=== PATIENT | male | born 1985 | race Two or more races ===

== ENCOUNTER → 2020-04-17 | Outpatient (CLI) | payer OTHER ==
[~2020-04-17] MED LIST: ISOVUE-M 300 61% 15ML VIAL As Ordered ONE; LIDOCAINE 1% SDV 30ML VIAL As Ordered ONE; methylPREDNISolone SUSP 40MG/ML 1ML VIAL (DEPO MEDROL) As Ordered ONE
--- NOTE | 2020-04-17 13:17 | REP ---
INDICATION: LESI. COMPARISON: None. TECHNIQUE: Three views. 11.0 seconds of fluoroscopy time is reported. FINDINGS: A sequence of 3 last image hold fluoroscopically obtained spot radiograph(s) of the lumbar spine document(s) needle position(s) and contrast injection associated with injection procedure. IMPRESSION: Procedural imaging. <Electronically signed by Joel Land > 04/17/20 1889
--- NOTE | 2020-04-17 23:55 | ECWPNPC ---
PATIENT NAME: KYRIE REDMOND : 1985 GENDER: MALE VISIT DATE: 04/17/2020 DISCHARGE DATE: 04/17/20 1318 VISIT LOCKED DATE TIME: PHYSICIAN: ILA BURCH MD PHYSICIAN PAGER NO: ACTIVE RESOURCE: ILA BURCH MD REASON FOR APPOINTMENT 1. LUMBAR EPIDURAL STEROID INJECTION HISTORY OF PRESENT ILLNESS GENERAL: -. FALL RISK SCREENING: SCREENING :TWO OR MORE FALLS WITHOUT INJURY IN THE PAST YEAR STATES HE SLIPPED ON THE ICE A FEW TIMES THIS WINTER, NO INJURY PAIN SCREENING: PATIENT HAS A COMPLAINT OF ACUTE OR CHRONIC PAIN :YES LOCATION OF PAIN:LOW BACK, RIGHT HIP, LEG(S) RIGHT LEG INTENSITY OF PAIN (SCALE OF 1 TO 10):7 WHAT DOES YOUR PAIN FEEL LIKE:ACHING, STABBING DEEP ACHE DURATION:CONTINOUS, ALL DAY, AWAKENS FROM SLEEP PAIN IS INCREASED BY:PROLONGED STANDING, OTHERS LIFTING, SHOVELING PAIN IS DECREASED BY:SITTING, OTHERS HOT TUB NURSING NOTE: -. PAIN CENTER INTAKE QUESTIONS: DO YOU HAVE A HISTORY OF MRSA? :NO DO YOU TAKE A BLOOD THINNERS? :NO DO YOU HAVE ANY BLEEDING DISORDERS? :NO ANY NEW NUMBNESS OR WEAKNESS IN YOUR LEGS OR ARMS? :NO ANY PACEMAKER,DEFIBRILLATOR, OR DORSAL COLUMN STIMULATOR? :NO DO YOU HAVE ANY RASHES OR OPEN SORES? :NO ARE YOU ALLERGIC TO IV DYE? :NO ARE YOU DIABETIC? :NO ANY NEW PROBLEMS WITH YOUR MEDICATIONS? :NO HAVE YOU RECEIVED A VACCINE IN THE PAST 30 DAYS? :NO DO YOU PLAN TO RECEIVE A VACCINE IN THE NEXT 21 DAYS? :NO PATIENT SCHEDULED TO GET 1ST COVID VACCINE 05/11/20 OR 05/12/20. DO YOU TAKE ANY IMMUNOSUPPRESSIVE MEDICATIONS? :NO ANY HISTORY OF SEIZURES? :NO ANY HISTORY OF CARDIAC ISSUES OR EVENTS? :NO DO YOU HAVE SLEEP APNEA? :YES DO YOU WEAR A CPAP?YES ANY RECENT HEAD INJURY? :NO DO YOU HAVE ANY NEW INFECTIONS? :NO IS THERE A CHANCE YOU COULD BE ? :NO ARE YOU BREAST FEEDING? :NO WHEN DID YOU LAST EAT? : - WHEN DID YOU LAST DRINK? : - WHAT DID YOU LAST DRINK? : - NAME OF PERSON DRIVING YOU HOME? : DO YOU HAVE ANY OTHER QUESTIONS OR CONCERNS? : - CURRENT MEDICATIONS TAKING LIPITOR 20 MG TABLET 1 TABLET ORALLY ONCE A DAY TAKING CVS FLUTICASONE PROPIONATE 50 MCG/ACT SUSPENSION 1 SPRAY IN EACH NOSTRIL NASALLY ONCE A DAY TAKING LISINOPRIL 5 MG TABLET DIRECTED ORALLY DAILY TAKING ZITHROMAX 250 MG TABLET 1 TABLET ORALLY ONCE A DAY TAKING ALBUTEROL SULFATE HFA 108 (90 BASE) MCG/ACT AEROSOL SOLUTION 2 PUFFS INHALATION EVERY 4-6 HOURS NEEDED, NOTES: ONLY NEEDED TAKING LIDOCAINE 5 % PATCH 1 PATCH TO INTACT SKIN REMOVE AFTER 12 HOURS EXTERNALLY ONCE A DAY NEEDED 12 HRS ON AND 12 HRS OFF TAKING WRIST SPLINT RIGHT WRIST NEEDED TAKING ACCUTANE 20 MG DAILY ORAL DAILY TAKING TRIKAFTA 100-50-75 & 150 MG TABLET THERAPY PACK DIRECTED ORALLY DAILY TAKING MULTIVITAMIN ADULT - TABLET 1 TABLET ORALLY DAILY TAKING ZOLOFT 100 MG TABLET 1 TABLET ORALLY ONCE A DAY TAKING TIZANIDINE HCL 2 MG TABLET 1 TABLET NEEDED - TAKES 1/2 TABLET DAILY ORALLY FOR SPASMS THREE TIMES A DAY MDD3 TAKING VOLTAREN 1 % GEL DIRECTED TRANSDERMAL TAKING LYRICA 200 MG CAPSULE 1 CAPSULE ORALLY BID MDD2 NOT-TAKING MELOXICAM 15 MG TABLET 1 TABLET PRN ORALLY ONCE A DAY, NOTES: 08-19-19 0800 NOT-TAKING TRAMADOL HCL 50 MG TABLET 1-2 TAB ORALLY EVERY 6 HRS MDD4 NOT-TAKING MAY HAVE - - TURMERIC 2 CAPSULE ORALLY DAILY NOT-TAKING ALEVE 220 MG TABLET 1 TABLET WITH FOOD OR MILK NEEDED ORALLY EVERY 12 HRS NOT-TAKING KALYDECO 150 MG TABLET 1 TABLET ORALLY TWICE DAILY NOT-TAKING MULTI VITAMIN W/D-3 - TABLET 2 TABLETS ORALLY ONCE A DAY NOT-TAKING FLUOXETINE HCL 10 MG CAPSULE 1 CAPSULE IN THE MORNING ORALLY ONCE A DAY MEDICATION LIST REVIEWED AND RECONCILED WITH THE PATIENT PAST MEDICAL HISTORY CLASSIC MIGRAINE WITH AURA ATYPICAL DEPRESSIVE DISORDER/ANXIETY/ADJUSTMENT DISORDER ATTENTION DEFICIT DISORDER WITHOUT HYPERACTIVITY CERVICAL RADICULOPATHY/NEURITIS C5-6( SINCE 2007 ON DISABILITY) CHRONIC BACK PAIN CARPAL TUNNEL SYNDROME - LEFT HAND ALLERGIC RHINITIS 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 TO LINEZOLIDE AND CLINDAMYCIN ONLY 2016 PANCREATITIS RIGHT TORN LIGAMENT IN RIGHT OBESITY HYPERTENSION ALLERGIES AMITRIPTYLINE HCL: EXCESSIVE SOMNOLENCE - SIDE EFFECTS GABAPENTIN: GETS SUICIDAL THOUGHTS - SIDE EFFECTS SOCIAL HISTORY GENERAL: TOBACCO USE ARE YOU A:USES TOBACCO IN OTHER FORMS ALMOST QUIT, CONTUNES TO TRY, STARTED CHANTIX TODAY ADDITIONAL FINDINGS: TOBACCO USERCHEWS TOBACCO ALSO USING NON TOBACCO CHEW, REPORTS USING LESS SMOKING CESSATION INFORMATION GIVEN04/16/2020 VAPORNO E-CIGARETTENO LATEX QUESTIONNAIRE LATEX ALLERGY : HAVE YOU EVER DEVELOPED ANY TYPE OF REACTION AFTER HANDLING LATEX PRODUCTS SUCH RUBBER GLOVES, CONDOMS, DIAPHRAGMS, BALLOONS, SOCKS, OR UNDERWEAR?NO LATEX ALLERGY : HAVE YOU EVER DEVELOPED ANY TYPE OF REACTION DURING OR AFTER DENTAL APPOINTMENT, VAGINAL/RECTAL EXAMINATION, SURGICAL PROCEDURE, OR ANY OTHER EXPOSURE?NO LATEX RISK : HAVE YOU EVER HAD ANY DIFFICULTY BREATHING OR HIVES AFTER EATING OR HANDLING ANY FRUITS, OR VEGETABLES; SUCH KIWI, BANANAS, STONE FRUITS, OR CHESTNUTSNO LATEX RISK : DO YOU HAVE A PREVIOUS PERSONAL HISTORY OF MORE THAN NINE SURGERIES, SPINA BIFIDA, OR REPEATED CATHERIZATIONS? NO LATEX RISK : ARE YOU FREQUENTLY EXPOSED TO LATEX PRODUCTS IN YOUR OCCUPATION?NO DATE ASKED : 04/16/2020 ALCOHOL USE: NO. BMI CARE GOAL FOLLOW-UP ABOVE NORMAL BMI FOLLOW-UPEXERCISE PROMOTION: STRENGTH TRAINING ALCOHOL SCREENING DID YOU HAVE A DRINK CONTAINING ALCOHOL IN THE PAST YEAR?YES HOW OFTEN DID YOU HAVE SIX OR MORE DRINKS ON ONE OCCASION IN THE PAST YEAR?NEVER (0 POINTS) HOW MANY DRINKS DID YOU HAVE ON A TYPICAL DAY WHEN YOU WERE DRINKING IN THE PAST YEAR?3 OR 4 (1 POINT) HOW OFTEN DID YOU HAVE A DRINK CONTAINING ALCOHOL IN THE PAST YEAR?MONTHLY OR LESS (1 POINT) POINTS2 INTERPRETATIONNEGATIVE RECREATIONAL DRUG USE DRUG USE? NONE CAFFEINE CAFFEINE USE?NO SEXUAL HX HAD SEX IN THE LAST 12 MONTHS (VAGINAL, ORAL, OR ANAL)?: YES, WITH: WOMEN ONLY, HAVE YOU EVER HAD AN STD?: NO, HAD SEX IN THE LAST 12 MONTHS (VAGINAL, ORAL, OR ANAL)?: YES, WITH: WOMEN ONLY, HAVE YOU EVER HAD AN STD?: NO, HAD SEX IN THE LAST 12 MONTHS (VAGINAL, ORAL, OR ANAL)?: YES, WITH: WOMEN ONLY, HAVE YOU EVER HAD AN STD?: NO, HAD SEX IN THE LAST 12 MONTHS (VAGINAL, ORAL, OR ANAL)?: YES, WITH: WOMEN ONLY, HAVE YOU EVER HAD AN STD?: NO, HAD SEX IN THE LAST 12 MONTHS (VAGINAL, ORAL, OR ANAL)?: YES, WITH: WOMEN ONLY, HAVE YOU EVER HAD AN STD?: NO, HAD SEX IN THE LAST 12 MONTHS (VAGINAL, ORAL, OR ANAL)?: YES, WITH: WOMEN ONLY, HAVE YOU EVER HAD AN STD?: NO. HIV / HEP-C SCREENING HIV TEST OFFERED TO PATIENT:YES DATE OFFERED:07/27/2016 TEST ACCEPTED:NO HEP-C TEST OFFERED TO PATIENT:YES DATE OFFERED:07/27/2016 REASON:PATIENT DECLINED TEST ACCEPTED:NO REASON:PATIENT DECLINED MU-ISM [id number] LATTER DAY LANGUAGE LANGUAGES SPOKEN:CZECH EDUCATION BACHELOR- MATH, BACHELOR- MATH, BACHELOR- MATH, BACHELOR- MATH, BACHELOR- MATH, BACHELOR- MATH. 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 DIET: REGULAR , LOW FAT, LOW CHOLESTEROL, CARBOHYDRATE CONTROLLED, REGULAR , LOW FAT, LOW CHOLESTEROL, CARBOHYDRATE CONTROLLED. EXERCISE: NO REGULAR EXERCISE, WALKS, NO REGULAR EXERCISE, WALKS. MARITAL STATUS: , . OTHERS AT HOME: SPOUSE, , SPOUSE,. HOUSING: OWNS HOME, , OWNS HOME,. VITAL SIGNS WT 327.8 LBS, HT 70.5 IN, BMI 46.36 INDEX, BP 135/86 MM HG, HR 96 /MIN, RR 20 /MIN, TEMP 98.1 F, OXYGEN SAT % 96%, NA INITIALS SC 11:15. EXAMINATION GENERAL EXAMINATION: THE PATIENT IS ALERT, ORIENTED TIMES THREE AND COOPERATIVE. LUNGS ARE CLEAR TO AUSCULTATION. HEART SHOWS REGULAR RHYTHM, NO MURMURS AND NO GALLOPS. ASSESSMENTS INTERVERTEBRAL DISC DISORDERS WITH RADICULOPATHY, LUMBAR REGION - M51.16 (PRIMARY) TREATMENT INTERVERTEBRAL DISC DISORDERS WITH RADICULOPATHY, LUMBAR REGION [facility] FLUORO GUIDE SPINE INJECTION (PAIN)[id number] COMPLETION OF PROCEDURAL VISIT WHEN MEETS CRITERIATESS [place] 04/17/2020 1:23:27 PM > CRITERIA MET OTHERS NOTES: 04/16/20 1635 UNABLE TO REACH FOR PRE-PROCEDURE CALL. Serafin YADAV RN PAT COMPLETED 04/16/20 0387 Jae PIZARRO RN. PROCEDURES PAIN NURSING RECORD PROCEDURE IN ROOM 1215, PHYSICIAN IN ROOM 1251, START 1253, FINISH 1300, PHYSICIAN OUT OF ROOM 1301, OUT OF ROOM 1316, ECG NORMAL SINUS, PATIENT SHIELDED YES, SAFETY STRAP YES, PREP BETADINE BY TA, DRESSING TEGADERM BY DR BURCH LOC: IN ROOM 1215, PHYSICIAN IN ROOM 1251, START 1253, ECG NORMAL SINUS, PATIENT SHIELDED YES, SAFETY STRAP YES, PREP BETADINE BY TA RESP: 1. ALERT, ORIENTED TRE,[facility] 04/17/2020 12:32:59 PM > COLOR: 1. PINK TRE,[facility] 04/17/2020 12:33:13 PM > SKIN: 1. WARM, DRY TRE,[facility] 04/17/2020 12:33:21 PM > POSITION: 1. PRONE [facility] 04/17/2020 12:33:28 PM > VITALS: TRE,[facility] 04/17/2020 12:34:08 PM > HR82, 96%, 144/94, R16 TRE,[facility] 04/17/2020 12:43:06 PM > HR 83, 96%, 156/95, R16 TRE,[facility] 04/17/2020 12:59:00 PM > HR76, 95%, 161/103, R16 EXIT VITALS - HR 82, 126/78, 96%, R16 TRE,[facility] 04/17/2020 1:17 PM > COMPLETION OF PROCEDURE APPOINTMENT: POST PAIN 1, DRESSING SITE DRY AND INTACT LOW BACK, IV N/A, GAIT STEADY, TEACHING COMPLETED, PATIENT ACKNOWLEDGES UNDERSTANDING YES, PROCEDURE APPOINTMENT COMPLETED AT 1317 PRE PROCEDURE DIAGNOSIS LUMBAR DISC DISORDER WITH RADICULOPATHY POST PROCEDURE DIAGNOSIS LUMBAR DISC DISORDER WITH RADICULOPATHY PROCEDURE LUMBAR EPIDURAL STEROID INJECTION UNDER FLUOROSCOPIC GUIDANCE SURGEON DR. ILA BURCH LEATHER GOODS MAKER NONE ANESTHESIA LOCAL PRE PROCEDURE NOTE THE PATIENT HAS A HISTORY OF CHRONIC LOW BACK PAIN. I EVALUATED THE PATIENT AND REVIEWED THE CHART. I WENT OVER THE RISKS, ALTERNATIVES, AND BENEFITS ASSOCIATED WITH THIS PROCEDURE. THE PATIENT WOULD LIKE TO PROCEED AND GIVE CONSENT TO PERFORMED THE PROCEDURE. THE PATIENT DENIES UNEXPLAINABLE WEIGHT LOSS, FEVER, CHILLS, OR NEW CHANGES IN URINARY OR BOWEL CONTROL. PATIENT IS COVID-19 NEGATIVE. DESCRIPTION OF PROCEDURE THE PATIENT WAS BROUGHT TO THE PROCEDURE ROOM AND PLACED IN THE PRONE POSITION. THE LUMBOSACRAL AREA WAS CLEANED WITH BETADINE SOLUTION AND DRAPED ASEPTICALLY. THE PROCEDURE WAS DONE UNDER STERILE CONDITIONS. A TIMEOUT WAS PERFORMED WHERE THE CONSENTED SITE WAS VERIFIED WITH EVERYONE IN THE ROOM. UNDER FLUOROSCOPIC GUIDANCE, THE TARGET POINT WAS SELECTED AT THE INTERLAMINAR LEVEL OF L4-L5. I CONFIRMED AGAIN THE SITE OF TARGET. LIDOCAINE WAS USED TO NUMB THE SKIN AND THE SUBCUTANEOUS TISSUE BELOW IT. EPIDURAL TUOHY NEEDLE, 17-GAUGE, WAS ADVANCED UNDER FLUOROSCOPIC GUIDANCE AND FOLLOWING PATIENT FEEDBACK UNTIL THE EPIDURAL SPACE WAS REACHED 9 CM DEEP INTO THE SKIN BY THE LOSS OF RESISTANCE TECHNIQUE. ISOVUE-M DYE 30%, 0.25 ML, WAS INJECTED SHOWING ADEQUATE SPREAD OF THE DYE. THEN, A SOLUTION OF 3 ML OF NORMAL SALINE WITH DEPO-MEDROL 40 MG WAS INJECTED SLOWLY FOLLOWING PATIENT FEEDBACK. THE MEDICATIONS WERE VERIFIED WITH THE NURSE. THERE WAS NO EVIDENCE OF BLOOD, PARESTHESIA OR CEREBROSPINAL FLUID DURING THE PROCEDURE. THE PATIENT WAS SENT TO THE RECOVERY ROOM. THE PATIENT WAS MOVING THE EXTREMITIES AND DOING WELL. THERE WERE NO COMPLICATIONS DURING THE PROCEDURE. ESTIMATED BLOOD LOSS WAS LESS THAN 5 ML. FLUOROSCOPY TIME WAS 10 SECONDS POST PROCEDURE NOTE THE PATIENT WILL BE SEEN IN A FOLLOW UP IN THE NEXT FEW WEEKS. I AM LOOKING FOR LONG LASTING RELIEF FOR THE PATIENT WITH THIS INTERVENTION. INSTRUCTIONS WERE GIVEN, QUESTIONS WERE ANSWERED, AND THE PATIENT EXPRESSED UNDERSTANDING AND AGREES WITH THE PLAN. I, THEODORA PATHAK, DOCUMENTED THE ABOVE INFORMATION ACTING A SCRIBE FOR DR. BURCH. I HAVE REVIEWED THE ABOVE DOCUMENT, WRITTEN BY THEODORA PATHAK, LIFESTYLE CONSULTANT, AND I VERIFY THAT IT IS ACCURATE PROCEDURE CODES 28472 LUMBAR/SACRAL W/ IMAGING DISPOSITION & COMMUNICATION FOLLOW UP FOLLOW UP WITH CHARGE COORDINATOR (REASON: POST LUMBAR EPIDURAL STEROID INJECTION) ELECTRONICALLY SIGNED BY ILA BURCH MD, MD ON 04/17/2020 AT 04:41 PM EST DISCLAIMER : THIS IS A VISIT SUMMARY EXTRACTED FROM THE [employer] CHART. IT IS NOT A COPY OF THE [employer] PROGRESS NOTE. JADEN
== END ==
LOC: M PAIN 11:20
PROVIDERS: ATTEND Anesthesiology
DX: M51.16 Intervertebral disc disorders with radiculopathy, lumbar region (principal); G43.109 Migraine with aura, not intractable, without status migrainosus; F32.9 Major depressive disorder, single episode, unspecified; F41.9 Anxiety disorder, unspecified; I10 Essential (primary) hypertension; E66.9 Obesity, unspecified; F17.220 Nicotine dependence, chewing tobacco, uncomplicated; Z68.42 Body mass index [BMI] 45.0-49.9, adult; Z88.8 Allergy status to other drugs, medicaments and biological substances; Z79.899 Other long term (current) drug therapy
CPT/HCPCS: 62323; J1030; Q9967

== ENCOUNTER → 2020-05-01 | Outpatient (CLI) | payer OTHER ==
--- NOTE | 2020-05-08 02:47 | ECWPNPC ---
PATIENT NAME: KYRIE REDMOND : 1985 GENDER: MALE VISIT DATE: 05/01/2020 DISCHARGE DATE: 05/01/20 1221 VISIT LOCKED DATE TIME: PHYSICIAN: CHARLES MEDINA PHYSICIAN PAGER NO: ACTIVE RESOURCE: CHARLES MEDINA REASON FOR APPOINTMENT 1. POST LUMBAR EPIDURAL STEROID INJECTION L4-5, L5-S1 HISTORY OF PRESENT ILLNESS GENERAL: HERE FOR POST PROCEDURE FOLLOW-UP. HAD LESI 2 WEEKS AGO. REPORTING MARKED REDUCTION IN PAIN ACROSS HIS LOWER BACK. REPORTING IMPROVED ACTIVITY TOLERANCE SINCE PROCEDURE. FINDS CURRENT PAIN MEDICATION HELPFUL AT REDUCING PAIN AND KEEPING HIM FUNCTIONAL. DENIES ADVERSE SIDE EFFECTS WITH MEDICATION. -. FALL RISK SCREENING: SCREENING : NO FALLS REPORTED IN THE LAST YEAR. PAIN SCREENING: PATIENT HAS A COMPLAINT OF ACUTE OR CHRONIC PAIN :YES LOCATION OF PAIN:LOW BACK INTENSITY OF PAIN (SCALE OF 1 TO 10):0 WHAT DOES YOUR PAIN FEEL LIKE:CONTINOUS, SHARP, STABBING DURATION:CONTINOUS, CONSTANT, ALL DAY PAIN IS INCREASED BY:ACTIVITIES, PROLONGED STANDING PAIN IS DECREASED BY:OTHERS HEAT AND DRIVING HEATED SEATS NURSING NOTE: -. PAIN CENTER INTAKE QUESTIONS: DO YOU HAVE A HISTORY OF MRSA? :NO DO YOU TAKE A BLOOD THINNERS? :NO DO YOU HAVE ANY BLEEDING DISORDERS? :NO ANY NEW NUMBNESS OR WEAKNESS IN YOUR LEGS OR ARMS? :NO ANY PACEMAKER,DEFIBRILLATOR, OR DORSAL COLUMN STIMULATOR? :NO DO YOU HAVE ANY RASHES OR OPEN SORES? :NO ARE YOU ALLERGIC TO IV DYE? :NO ARE YOU DIABETIC? :NO ANY NEW PROBLEMS WITH YOUR MEDICATIONS? :NO HAVE YOU RECEIVED A VACCINE IN THE PAST 30 DAYS? :YES IF SO WHAT VACCINE AND WHEN? 1ST COVID 04/30/2020 DO YOU PLAN TO RECEIVE A VACCINE IN THE NEXT 21 DAYS? :YES IF SO WHAT VACCINE AND WHEN? 2ND COVID 05/21/2020 DO YOU NEED ANY PRESCRIPTION? :NO DO YOU TAKE ANY IMMUNOSUPPRESSIVE MEDICATIONS? :NO IS THERE A CHANCE YOU COULD BE ? :NO ARE YOU BREAST FEEDING? :NO CURRENT MEDICATIONS TAKING LIPITOR 20 MG TABLET 1 TABLET ORALLY ONCE A DAY TAKING [facility] FLUTICASONE PROPIONATE 50 MCG/ACT SUSPENSION 1 SPRAY IN EACH NOSTRIL NASALLY ONCE A DAY TAKING LISINOPRIL 5 MG TABLET DIRECTED ORALLY DAILY TAKING ZITHROMAX 250 MG TABLET 1 TABLET ORALLY ONCE A DAY TAKING ALBUTEROL SULFATE HFA 108 (90 BASE) MCG/ACT AEROSOL SOLUTION 2 PUFFS INHALATION EVERY 4-6 HOURS NEEDED TAKING LIDOCAINE 5 % PATCH 1 PATCH TO INTACT SKIN REMOVE AFTER 12 HOURS EXTERNALLY ONCE A DAY NEEDED 12 HRS ON AND 12 HRS OFF TAKING WRIST SPLINT RIGHT WRIST NEEDED TAKING ACCUTANE 20 MG DAILY ORAL DAILY TAKING TRIKAFTA 100-50-75 & 150 MG TABLET THERAPY PACK DIRECTED ORALLY DAILY TAKING MULTIVITAMIN ADULT - TABLET 1 TABLET ORALLY DAILY TAKING ZOLOFT 100 MG TABLET 1 TABLET ORALLY ONCE A DAY TAKING TIZANIDINE HCL 2 MG TABLET 1 TABLET NEEDED - TAKES 1/2 TABLET DAILY ORALLY FOR SPASMS THREE TIMES A DAY MDD3 TAKING VOLTAREN 1 % GEL DIRECTED TRANSDERMAL TAKING LYRICA 200 MG CAPSULE 1 CAPSULE ORALLY BID MDD2 NOT-TAKING MELOXICAM 15 MG TABLET 1 TABLET PRN ORALLY ONCE A DAY, NOTES: 08-19-19 0800 NOT-TAKING TRAMADOL HCL 50 MG TABLET 1-2 TAB ORALLY EVERY 6 HRS MDD4 NOT-TAKING MAY HAVE - - TURMERIC 2 CAPSULE ORALLY DAILY NOT-TAKING ALEVE 220 MG TABLET 1 TABLET WITH FOOD OR MILK NEEDED ORALLY EVERY 12 HRS NOT-TAKING KALYDECO 150 MG TABLET 1 TABLET ORALLY TWICE DAILY NOT-TAKING MULTI VITAMIN W/D-3 - TABLET 2 TABLETS ORALLY ONCE A DAY NOT-TAKING FLUOXETINE HCL 10 MG CAPSULE 1 CAPSULE IN THE MORNING ORALLY ONCE A DAY MEDICATION LIST REVIEWED AND RECONCILED WITH THE PATIENT PAST MEDICAL HISTORY CLASSIC MIGRAINE WITH AURA ATYPICAL DEPRESSIVE DISORDER/ANXIETY/ADJUSTMENT DISORDER ATTENTION DEFICIT DISORDER WITHOUT HYPERACTIVITY CERVICAL RADICULOPATHY/NEURITIS C5-6( SINCE 2007 ON DISABILITY) CHRONIC BACK PAIN CARPAL TUNNEL SYNDROME - LEFT HAND ALLERGIC RHINITIS 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-[id number] TREMOR ERECTILE DYSFUNCTION HISTORY OF FOLLICULITIS STAPH EPIDERMITIS SENS. TO LINEZOLIDE AND CLINDAMYCIN ONLY 2017 PANCREATITIS RIGHT TORN LIGAMENT IN RIGHT OBESITY HYPERTENSION ALLERGIES AMITRIPTYLINE HCL: EXCESSIVE SOMNOLENCE - SIDE EFFECTS GABAPENTIN: GETS SUICIDAL THOUGHTS - SIDE EFFECTS SOCIAL HISTORY GENERAL: TOBACCO USE ARE YOU A:USES TOBACCO IN OTHER FORMS ALMOST QUIT, CONTUNES TO TRY, STARTED CHANTIX TODAY ADDITIONAL FINDINGS: TOBACCO USERCHEWS TOBACCO ALSO USING NON TOBACCO CHEW, REPORTS USING LESS SMOKING CESSATION INFORMATION GIVEN04/16/2020 VAPORNO E-CIGARETTENO LATEX QUESTIONNAIRE LATEX ALLERGY : HAVE YOU EVER DEVELOPED ANY TYPE OF REACTION AFTER HANDLING LATEX PRODUCTS SUCH RUBBER GLOVES, CONDOMS, DIAPHRAGMS, BALLOONS, SOCKS, OR UNDERWEAR?NO LATEX ALLERGY : HAVE YOU EVER DEVELOPED ANY TYPE OF REACTION DURING OR AFTER DENTAL APPOINTMENT, VAGINAL/RECTAL EXAMINATION, SURGICAL PROCEDURE, OR ANY OTHER EXPOSURE?NO LATEX RISK : HAVE YOU EVER HAD ANY DIFFICULTY BREATHING OR HIVES AFTER EATING OR HANDLING ANY FRUITS, OR VEGETABLES; SUCH KIWI, BANANAS, STONE FRUITS, OR CHESTNUTSNO LATEX RISK : DO YOU HAVE A PREVIOUS PERSONAL HISTORY OF MORE THAN NINE SURGERIES, SPINA BIFIDA, OR REPEATED CATHERIZATIONS? NO LATEX RISK : ARE YOU FREQUENTLY EXPOSED TO LATEX PRODUCTS IN YOUR OCCUPATION?NO DATE ASKED : 05/01/2020 ALCOHOL USE: NO. BMI CARE GOAL FOLLOW-UP ABOVE NORMAL BMI FOLLOW-UPEXERCISE PROMOTION: STRENGTH TRAINING ALCOHOL SCREENING DID YOU HAVE A DRINK CONTAINING ALCOHOL IN THE PAST YEAR?YES HOW OFTEN DID YOU HAVE SIX OR MORE DRINKS ON ONE OCCASION IN THE PAST YEAR?NEVER (0 POINTS) HOW MANY DRINKS DID YOU HAVE ON A TYPICAL DAY WHEN YOU WERE DRINKING IN THE PAST YEAR?3 OR 4 (1 POINT) HOW OFTEN DID YOU HAVE A DRINK CONTAINING ALCOHOL IN THE PAST YEAR?MONTHLY OR LESS (1 POINT) POINTS2 INTERPRETATIONNEGATIVE RECREATIONAL DRUG USE DRUG USE? NONE CAFFEINE CAFFEINE USE?NO SEXUAL HX HAD SEX IN THE LAST 12 MONTHS (VAGINAL, ORAL, OR ANAL)?: YES, WITH: WOMEN ONLY, HAVE YOU EVER HAD AN STD?: NO, HAD SEX IN THE LAST 12 MONTHS (VAGINAL, ORAL, OR ANAL)?: YES, WITH: WOMEN ONLY, HAVE YOU EVER HAD AN STD?: NO, HAD SEX IN THE LAST 12 MONTHS (VAGINAL, ORAL, OR ANAL)?: YES, WITH: WOMEN ONLY, HAVE YOU EVER HAD AN STD?: NO, HAD SEX IN THE LAST 12 MONTHS (VAGINAL, ORAL, OR ANAL)?: YES, WITH: WOMEN ONLY, HAVE YOU EVER HAD AN STD?: NO, HAD SEX IN THE LAST 12 MONTHS (VAGINAL, ORAL, OR ANAL)?: YES, WITH: WOMEN ONLY, HAVE YOU EVER HAD AN STD?: NO, HAD SEX IN THE LAST 12 MONTHS (VAGINAL, ORAL, OR ANAL)?: YES, WITH: WOMEN ONLY, HAVE YOU EVER HAD AN STD?: NO. HIV / HEP-C SCREENING HIV TEST OFFERED TO PATIENT:YES DATE OFFERED:07/27/2016 TEST ACCEPTED:NO HEP-C TEST OFFERED TO PATIENT:YES DATE OFFERED:07/27/2016 REASON:PATIENT DECLINED TEST ACCEPTED:NO REASON:PATIENT DECLINED TAOISM [id number] VOODOO LANGUAGE LANGUAGES SPOKEN:[employer] EDUCATION BACHELOR- MATH, BACHELOR- MATH, BACHELOR- MATH, BACHELOR- MATH, BACHELOR- MATH, BACHELOR- MATH. 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 DIET: REGULAR , LOW FAT, LOW CHOLESTEROL, CARBOHYDRATE CONTROLLED, REGULAR , LOW FAT, LOW CHOLESTEROL, CARBOHYDRATE CONTROLLED. EXERCISE: NO REGULAR EXERCISE, WALKS, NO REGULAR EXERCISE, WALKS. MARITAL STATUS: , . OTHERS AT HOME: SPOUSE, , SPOUSE,. HOUSING: OWNS HOME, , OWNS HOME,. REVIEW OF SYSTEMS CONSTITUTIONAL: ANY RECENT FEVER NO . CHILLS NO . WEIGHT CHANGE OF UNKNOWN REASONS NO . GASTROENTEROLOGY: NEW UNEXPLAINABLE CHANGES IN BOWEL CONTROL NO . CONSTIPATION NO . GENITOURINARY: ANY NEW CHANGE IN BLADDER CONTROL? NO . NEUROLOGY: NEW ONSET DIZZINESS OR NEUROLOGICAL CHANGES NOT MENTIONED NO . NEW NUMBNESS OR PAIN PATTERNS NOT MENTIONED AND PERTINENT TO TODAY'S VISIT NO . CARDIOLOGY: NEW CHEST PRESSURE NO . PATIENT DENIES NO . RESPIRATORY: UNEXPLAINABLE COUGH NO . NEW SHORTNESS OF BREATH NO . VITAL SIGNS WT 336.0 LBS, HT 70.5 IN, BMI 47.52 INDEX, BP 142/74 MM HG, HR 96 /MIN, RR 18 /MIN, TEMP 97.0 F, OXYGEN SAT % 97%, NA INITIALS AW 1142. EXAMINATION GENERAL EXAMINATION: GENERALAWAKE,ALERT ,PLEASANT . PSYCHAFFECT NORMAL . LUNGS:LUNG MICHEL ARE CLEAR TO AUSCULTATION BILATERALLY. GOOD MOVEMENT OF AIR . HEART:S1, S2 IN A REGULAR RATE AND RHYTHM. NO SIGNIFICANT MURMURS, RUBS OR GALLOPS NOTED . ASSESSMENTS OTHER CHRONIC PAIN - G89.29 (PRIMARY) INTERVERTEBRAL DISC DISORDERS WITH RADICULOPATHY, LUMBAR REGION - M51.16 TREATMENT OTHER CHRONIC PAIN PAIN PROCEDURE LOGDATE OF PROCEDURE1PROCEDURE:LUMBAR EPIDURAL STEROID INJECTIONAMOUNT OF PRE SEDATE0/0RESULT:MARKED REDUCTION IN LOW BACK PAIN AND IMPROVED ACTIVITY TOLERANCE PROCEDURE CODES [id number] ESTABILISHED PATIENT [facility] CHARGE DISPOSITION & COMMUNICATION FOLLOW UP 3 MONTHS (REASON: LOW BACK PAIN/DOES WELL WITH LESI) ELECTRONICALLY SIGNED BY ELADIA PA ON 05/07/2020 AT 01:18 PM EDT DISCLAIMER : THIS IS A VISIT SUMMARY EXTRACTED FROM THE [employer] CHART. IT IS NOT A COPY OF THE [employer] PROGRESS NOTE. JADEN
== END ==
LOC: M PAIN 11:30
PROVIDERS: ATTEND Nurse Practitioner Family
DX: G89.29 Other chronic pain (principal); M51.16 Intervertebral disc disorders with radiculopathy, lumbar region; I10 Essential (primary) hypertension; E66.9 Obesity, unspecified; G43.109 Migraine with aura, not intractable, without status migrainosus; F32.9 Major depressive disorder, single episode, unspecified; F41.9 Anxiety disorder, unspecified; N52.9 Male erectile dysfunction, unspecified; F17.220 Nicotine dependence, chewing tobacco, uncomplicated; Z79.899 Other long term (current) drug therapy; Z88.8 Allergy status to other drugs, medicaments and biological substances; Z68.42 Body mass index [BMI] 45.0-49.9, adult

== ENCOUNTER → 2020-08-01 | Outpatient (CLI) | payer OTHER ==
--- NOTE | 2020-08-07 05:06 | ECWPNPC ---
PATIENT NAME: KYRIE REDMOND : 1985 GENDER: MALE VISIT DATE: 08/01/2020 DISCHARGE DATE: 08/01/20 1150 VISIT LOCKED DATE TIME: PHYSICIAN: CHARLES MEDINA PHYSICIAN PAGER NO: ACTIVE RESOURCE: CHARLES MEDINA REASON FOR APPOINTMENT 1. LOW BACK PAIN/DOES WELL WITH LESI HISTORY OF PRESENT ILLNESS GENERAL: HERE FOR FOLLOW-UP OF CHRONIC LOW BACK PAIN. LOW BACK PAIN HAS BEGUN TO BE PROBLEMATIC OVER THE PAST FEW WEEKS. PAIN RADIATES INTO BILATERAL LEGS LEFT GREATER THAN RIGHT. HAD GREATER THAN 80% REDUCTION IN PAIN AND LOWER EXTREMITY RADICULAR SYMPTOMS AFTER LUMBAR EPIDURAL STEROID INJECTION THAT WAS DONE IN MARCH. DISCUSSED TREATMENT PLAN. -. FALL RISK SCREENING: SCREENING : NO FALLS REPORTED IN THE LAST YEAR. PAIN SCREENING: PATIENT HAS A COMPLAINT OF ACUTE OR CHRONIC PAIN :YES LOCATION OF PAIN:LOW BACK, LEFT HIP, RIGHT HIP INTENSITY OF PAIN (SCALE OF 1 TO 10):3 AVERAGE IS A 7 WHAT DOES YOUR PAIN FEEL LIKE:ACHING, BURNING, CONTINOUS, OTHER PINCHING DURATION:CONTINOUS, AWAKENS FROM SLEEP PAIN IS INCREASED BY:ACTIVITIES, PROLONGED STANDING PAIN IS DECREASED BY:USE OF PAIN MEDICATIONS, SITTING CROUCHING, HEAT NURSING NOTE: -. PAIN CENTER INTAKE QUESTIONS: DO YOU HAVE A HISTORY OF MRSA? :NO DO YOU TAKE A BLOOD THINNERS? :NO DO YOU HAVE ANY BLEEDING DISORDERS? :NO ANY NEW NUMBNESS OR WEAKNESS IN YOUR LEGS OR ARMS? :YES NUMBNESS IN LEGS ANY PACEMAKER,DEFIBRILLATOR, OR DORSAL COLUMN STIMULATOR? :NO DO YOU HAVE ANY RASHES OR OPEN SORES? :NO ARE YOU ALLERGIC TO IV DYE? :NO ARE YOU DIABETIC? :NO ANY NEW PROBLEMS WITH YOUR MEDICATIONS? :NO HAVE YOU RECEIVED A VACCINE IN THE PAST 30 DAYS? :NO SECOND COVID VACCINATION 05/21/20 DO YOU PLAN TO RECEIVE A VACCINE IN THE NEXT 21 DAYS? :NO DO YOU NEED ANY PRESCRIPTION? :YES LYRICA DO YOU TAKE ANY IMMUNOSUPPRESSIVE MEDICATIONS? :NO IS THERE A CHANCE YOU COULD BE ? :NO ARE YOU BREAST FEEDING? :NO CURRENT MEDICATIONS TAKING LIPITOR 20 MG TABLET 1 TABLET ORALLY ONCE A DAY TAKING CVS FLUTICASONE PROPIONATE 50 MCG/ACT SUSPENSION 1 SPRAY IN EACH NOSTRIL NASALLY ONCE A DAY TAKING LISINOPRIL 5 MG TABLET DIRECTED ORALLY DAILY TAKING ZITHROMAX 250 MG TABLET 1 TABLET ORALLY ONCE A DAY TAKING ALBUTEROL SULFATE HFA 108 (90 BASE) MCG/ACT AEROSOL SOLUTION 2 PUFFS INHALATION EVERY 4-6 HOURS NEEDED TAKING LIDOCAINE 5 % PATCH 1 PATCH TO INTACT SKIN REMOVE AFTER 12 HOURS EXTERNALLY ONCE A DAY NEEDED 12 HRS ON AND 12 HRS OFF TAKING WRIST SPLINT RIGHT WRIST NEEDED TAKING ACCUTANE 20 MG DAILY ORAL DAILY TAKING TRIKAFTA 100-50-75 & 150 MG TABLET THERAPY PACK DIRECTED ORALLY DAILY TAKING MULTIVITAMIN ADULT - TABLET 1 TABLET ORALLY DAILY TAKING ZOLOFT 100 MG TABLET 1 TABLET ORALLY ONCE A DAY TAKING VOLTAREN 1 % GEL DIRECTED TRANSDERMAL TAKING LYRICA 200 MG CAPSULE 1 CAPSULE ORALLY BID MDD2 TAKING TIZANIDINE HCL 2 MG TABLET 1 TABLET NEEDED - TAKES 1/2 TABLET DAILY ORALLY FOR SPASMS TID PRN TAKING BUPROPION HCL ER (SMOKING DET) 150 MG TABLET EXTENDED RELEASE 12 HOUR 1 TABLET IN THE MORNING ORALLY ONCE A DAY NOT-TAKING MELOXICAM 15 MG TABLET 1 TABLET PRN ORALLY ONCE A DAY, NOTES: 08-19-19 0800 NOT-TAKING TRAMADOL HCL 50 MG TABLET 1-2 TAB ORALLY EVERY 6 HRS MDD4 NOT-TAKING MAY HAVE - - TURMERIC 2 CAPSULE ORALLY DAILY NOT-TAKING ALEVE 220 MG TABLET 1 TABLET WITH FOOD OR MILK NEEDED ORALLY EVERY 12 HRS NOT-TAKING KALYDECO 150 MG TABLET 1 TABLET ORALLY TWICE DAILY NOT-TAKING MULTI VITAMIN W/D-3 - TABLET 2 TABLETS ORALLY ONCE A DAY NOT-TAKING FLUOXETINE HCL 10 MG CAPSULE 1 CAPSULE IN THE MORNING ORALLY ONCE A DAY MEDICATION LIST REVIEWED AND RECONCILED WITH THE PATIENT PAST MEDICAL HISTORY CLASSIC MIGRAINE WITH AURA ATYPICAL DEPRESSIVE DISORDER/ANXIETY/ADJUSTMENT DISORDER ATTENTION DEFICIT DISORDER WITHOUT HYPERACTIVITY CERVICAL RADICULOPATHY/NEURITIS C5-6( SINCE 2007 ON DISABILITY) CHRONIC BACK PAIN CARPAL TUNNEL SYNDROME - LEFT HAND ALLERGIC RHINITIS 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 TO LINEZOLIDE AND CLINDAMYCIN ONLY 2017 PANCREATITIS RIGHT TORN LIGAMENT IN RIGHT OBESITY HYPERTENSION ALLERGIES AMITRIPTYLINE HCL: EXCESSIVE SOMNOLENCE - SIDE EFFECTS GABAPENTIN: GETS SUICIDAL THOUGHTS - SIDE EFFECTS SOCIAL HISTORY GENERAL: TOBACCO USE ARE YOU A:FORMER SMOKER SMOKING CESSATION INFORMATION GIVEN08/01/2020 VAPORNO E-CIGARETTENO LATEX QUESTIONNAIRE LATEX ALLERGY : HAVE YOU EVER DEVELOPED ANY TYPE OF REACTION AFTER HANDLING LATEX PRODUCTS SUCH RUBBER GLOVES, CONDOMS, DIAPHRAGMS, BALLOONS, SOCKS, OR UNDERWEAR?NO LATEX ALLERGY : HAVE YOU EVER DEVELOPED ANY TYPE OF REACTION DURING OR AFTER DENTAL APPOINTMENT, VAGINAL/RECTAL EXAMINATION, SURGICAL PROCEDURE, OR ANY OTHER EXPOSURE?NO LATEX RISK : HAVE YOU EVER HAD ANY DIFFICULTY BREATHING OR HIVES AFTER EATING OR HANDLING ANY FRUITS, OR VEGETABLES; SUCH KIWI, BANANAS, STONE FRUITS, OR CHESTNUTSNO LATEX RISK : DO YOU HAVE A PREVIOUS PERSONAL HISTORY OF MORE THAN NINE SURGERIES, SPINA BIFIDA, OR REPEATED CATHERIZATIONS? NO LATEX RISK : ARE YOU FREQUENTLY EXPOSED TO LATEX PRODUCTS IN YOUR OCCUPATION?NO DATE ASKED : 08/01/2020 ALCOHOL USE: NO. BMI CARE GOAL FOLLOW-UP ABOVE NORMAL BMI FOLLOW-UPEXERCISE PROMOTION: STRENGTH TRAINING ALCOHOL SCREENING DID YOU HAVE A DRINK CONTAINING ALCOHOL IN THE PAST YEAR?YES HOW OFTEN DID YOU HAVE SIX OR MORE DRINKS ON ONE OCCASION IN THE PAST YEAR?NEVER (0 POINTS) HOW MANY DRINKS DID YOU HAVE ON A TYPICAL DAY WHEN YOU WERE DRINKING IN THE PAST YEAR?3 OR 4 (1 POINT) HOW OFTEN DID YOU HAVE A DRINK CONTAINING ALCOHOL IN THE PAST YEAR?MONTHLY OR LESS (1 POINT) POINTS2 INTERPRETATIONNEGATIVE RECREATIONAL DRUG USE DRUG USE? NONE CAFFEINE CAFFEINE USE?NO SEXUAL HX HAD SEX IN THE LAST 12 MONTHS (VAGINAL, ORAL, OR ANAL)?: YES, WITH: WOMEN ONLY, HAVE YOU EVER HAD AN STD?: NO, HAD SEX IN THE LAST 12 MONTHS (VAGINAL, ORAL, OR ANAL)?: YES, WITH: WOMEN ONLY, HAVE YOU EVER HAD AN STD?: NO, HAD SEX IN THE LAST 12 MONTHS (VAGINAL, ORAL, OR ANAL)?: YES, WITH: WOMEN ONLY, HAVE YOU EVER HAD AN STD?: NO, HAD SEX IN THE LAST 12 MONTHS (VAGINAL, ORAL, OR ANAL)?: YES, WITH: WOMEN ONLY, HAVE YOU EVER HAD AN STD?: NO, HAD SEX IN THE LAST 12 MONTHS (VAGINAL, ORAL, OR ANAL)?: YES, WITH: WOMEN ONLY, HAVE YOU EVER HAD AN STD?: NO, HAD SEX IN THE LAST 12 MONTHS (VAGINAL, ORAL, OR ANAL)?: YES, WITH: WOMEN ONLY, HAVE YOU EVER HAD AN STD?: NO. HIV / HEP-C SCREENING HIV TEST OFFERED TO PATIENT:YES DATE OFFERED:07/27/2016 TEST ACCEPTED:NO HEP-C TEST OFFERED TO PATIENT:YES DATE OFFERED:07/27/2016 REASON:PATIENT DECLINED TEST ACCEPTED:NO REASON:PATIENT DECLINED [facility] [id number] LANGUAGES SPOKEN:[employer] [employer]UC[employer] BACHELOR- MATH, BACHELOR- MATH, BACHELOR- MATH, BACHELOR- MATH, BACHELOR- MATH, BACHELOR- MATH. 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 DIET: REGULAR , LOW FAT, LOW CHOLESTEROL, CARBOHYDRATE CONTROLLED, REGULAR , LOW FAT, LOW CHOLESTEROL, CARBOHYDRATE CONTROLLED. EXERCISE: NO REGULAR EXERCISE, WALKS, NO REGULAR EXERCISE, WALKS. MARITAL STATUS: , . OTHERS AT HOME: SPOUSE, , SPOUSE,. HOUSING: OWNS HOME, , OWNS HOME,. REVIEW OF SYSTEMS CONSTITUTIONAL: ANY RECENT FEVER NO . CHILLS NO . WEIGHT CHANGE OF UNKNOWN REASONS NO . GASTROENTEROLOGY: NEW UNEXPLAINABLE CHANGES IN BOWEL CONTROL NO . CONSTIPATION NO . GENITOURINARY: ANY NEW CHANGE IN BLADDER CONTROL? NO . NEUROLOGY: NEW ONSET DIZZINESS OR NEUROLOGICAL CHANGES NOT MENTIONED NO . NEW NUMBNESS OR PAIN PATTERNS NOT MENTIONED AND PERTINENT TO TODAY'S VISIT NO . CARDIOLOGY: NEW CHEST PRESSURE NO . PATIENT DENIES NO . RESPIRATORY: UNEXPLAINABLE COUGH NO . NEW SHORTNESS OF BREATH NO . VITAL SIGNS WT 245.2 LBS, HT 70.5 IN, BMI 34.68 INDEX, BP 122/76 MM HG, HR 74 /MIN, RR 18 /MIN, TEMP 97.0 F, OXYGEN SAT % 98%, SAFE IN ENV? (Y/N) YES, NA INITIALS AW 1119, REVIEWED BY: TELLO PATIÑO MA. EXAMINATION GENERAL EXAMINATION: GENERAL AWAKE,ALERT ,PLEASANT . PSYCH AFFECT NORMAL . LUNGS: LUNG MICHEL ARE CLEAR TO AUSCULTATION BILATERALLY. GOOD MOVEMENT OF AIR . HEART: S1, S2 IN A REGULAR RATE AND RHYTHM. NO SIGNIFICANT MURMURS, RUBS OR GALLOPS NOTED . LUMBAR: PALPATION: + FOR PAIN OVER L/S SPINE. + FOR PAIN OVER L/S PARASPINALS SLE: POSITIVE OVER LEFT LEG AT 45 DEGREES. DIAGNOSTIC TESTS REVIEWED MRI L/S SPINE. ASSESSMENTS INTERVERTEBRAL DISC DISORDER WITH RADICULOPATHY OF LUMBAR REGION - M51.16 (PRIMARY) TREATMENT INTERVERTEBRAL DISC DISORDER WITH RADICULOPATHY OF LUMBAR REGION NOTES: LUMBAR EPIDURAL STERIOD INJECTION REVIEWED PRE PROCEDURE INFORMATION, PATIENT VERBALIZED UNDERSTANDING THELMA JOLLEY. PROCEDURE CODES FA211 ESTABILISHED PATIENT [facility] FACILITY CHARGE DISPOSITION & COMMUNICATION FOLLOW UP POST (REASON: LUMBAR EPIDURAL STERIOD INJECTION) ELECTRONICALLY SIGNED BY ELADIA PA ON 08/06/2020 AT 09:44 AM EDT DISCLAIMER : THIS IS A VISIT SUMMARY EXTRACTED FROM THE [employer] CHART. IT IS NOT A COPY OF THE [employer] PROGRESS NOTE. JADEN
== END ==
LOC: M PAIN 11:30
PROVIDERS: ATTEND Nurse Practitioner Family
DX: M51.16 Intervertebral disc disorders with radiculopathy, lumbar region (principal); G43.109 Migraine with aura, not intractable, without status migrainosus; F41.9 Anxiety disorder, unspecified; F32.9 Major depressive disorder, single episode, unspecified; I10 Essential (primary) hypertension; E66.9 Obesity, unspecified; E84.9 Cystic fibrosis, unspecified; N52.9 Male erectile dysfunction, unspecified; Z87.891 Personal history of nicotine dependence; Z79.899 Other long term (current) drug therapy; Z88.8 Allergy status to other drugs, medicaments and biological substances; Z68.34 Body mass index [BMI] 34.0-34.9, adult

== ENCOUNTER → 2020-08-27 | Outpatient (CLI) | payer OTHER | LOC: M LABSMTC 10:09 | PROVIDERS: ATTEND Anesthesiology | DX: Z01.812 Encounter for preprocedural laboratory examination (principal); Z11.52 Encounter for screening for COVID-19 ==

== ENCOUNTER → 2020-09-01 | Outpatient (CLI) | payer OTHER ==
--- NOTE | 2020-09-01 14:36 | REP ---
INDICATION: LESI. COMPARISON: None. TECHNIQUE: Three views. Seven seconds of fluoroscopy time is reported. FINDINGS: A sequence of 3 last image hold fluoroscopically obtained spot radiograph(s) of the lumbar spine document(s) needle position(s) and contrast injection associated with injection procedure. IMPRESSION: Procedural imaging. <Electronically signed by Joel Land > 09/01/20 [id number]
--- NOTE | 2020-09-05 03:28 | ECWPNPC ---
PATIENT NAME: KYRIE REDMOND : 1985 GENDER: MALE VISIT DATE: 09/01/2020 DISCHARGE DATE: 09/01/20 1051 VISIT LOCKED DATE TIME: PHYSICIAN: ILA BURCH MD PHYSICIAN PAGER NO: ACTIVE RESOURCE: ILA BURCH MD REASON FOR APPOINTMENT 1. LUMBAR EPIDURAL STERIOD INJECTION HISTORY OF PRESENT ILLNESS GENERAL: -. FALL RISK SCREENING: SCREENING : NO FALLS REPORTED IN THE LAST YEAR. PAIN SCREENING: PATIENT HAS A COMPLAINT OF ACUTE OR CHRONIC PAIN :YES LOCATION OF PAIN:LOW BACK, LEFT HIP, RIGHT HIP LEFT THIGH INTENSITY OF PAIN (SCALE OF 1 TO 10):6 AVERAGE IS A 7 WHAT DOES YOUR PAIN FEEL LIKE:CONTINOUS, SHARP, STABBING, SHOOTING, OTHER LEFT THIGH, "FEELS THOUGH MUSCLE IS RIPPING OFF THE BONE." HOT POKER. DURATION:CONTINOUS, AWAKENS FROM SLEEP PAIN IS INCREASED BY:ACTIVITIES, PROLONGED STANDING PAIN IS DECREASED BY:USE OF PAIN MEDICATIONS, SITTING CROUCHING, HEAT PLAN/GOALS/TREATMENT/INTERVENTION/FOLLOW UP:SEE PLAN NURSING NOTE: -. PAIN CENTER INTAKE QUESTIONS: DO YOU HAVE A HISTORY OF MRSA? :NO DO YOU TAKE A BLOOD THINNERS? :NO DO YOU HAVE ANY BLEEDING DISORDERS? :NO ANY NEW NUMBNESS OR WEAKNESS IN YOUR LEGS OR ARMS? :YES NUMBNESS IN LEGS ANY PACEMAKER,DEFIBRILLATOR, OR DORSAL COLUMN STIMULATOR? :NO DO YOU HAVE ANY RASHES OR OPEN SORES? :NO ARE YOU ALLERGIC TO IV DYE? :NO ARE YOU DIABETIC? :NO ANY NEW PROBLEMS WITH YOUR MEDICATIONS? :NO HAVE YOU RECEIVED A VACCINE IN THE PAST 30 DAYS? :NO DO YOU PLAN TO RECEIVE A VACCINE IN THE NEXT 21 DAYS? :NO DO YOU TAKE ANY IMMUNOSUPPRESSIVE MEDICATIONS? :YES CHRONIC ZITHROMAX MAINTENANCE FOR LUNGS, DUE TO CF. ANY HISTORY OF SEIZURES? :NO ANY HISTORY OF CARDIAC ISSUES OR EVENTS? :NO DO YOU HAVE ANY KIDNEY OR LIVER DISEASE? :NO DO YOU HAVE SLEEP APNEA? :YES DO YOU WEAR A CPAP?YES AUTOPAP ANY RECENT HEAD INJURY? :NO DO YOU HAVE ANY NEW INFECTIONS? :NO IS THERE A CHANCE YOU COULD BE ? :NO ARE YOU BREAST FEEDING? :NO WHEN DID YOU LAST EAT? : 08/31/20 WHEN DID YOU LAST DRINK? : 09/01/20 0700 WHAT DID YOU LAST DRINK? : WATER NAME OF PERSON DRIVING YOU HOME? : DO YOU HAVE ANY OTHER QUESTIONS OR CONCERNS? : NO CURRENT MEDICATIONS TAKING LIPITOR 20 MG TABLET 1 TABLET ORALLY ONCE A DAY TAKING CVS FLUTICASONE PROPIONATE 50 MCG/ACT SUSPENSION 1 SPRAY IN EACH NOSTRIL NASALLY ONCE A DAY TAKING LISINOPRIL 5 MG TABLET DIRECTED ORALLY DAILY, NOTES: 08/31/20 TAKING ZITHROMAX 250 MG TABLET 1 TABLET ORALLY ONCE A DAY, NOTES: FOR CYSTIC FIBROSIS TAKING ALBUTEROL SULFATE HFA 108 (90 BASE) MCG/ACT AEROSOL SOLUTION 2 PUFFS INHALATION EVERY 4-6 HOURS NEEDED TAKING LIDOCAINE 5 % PATCH 1 PATCH TO INTACT SKIN REMOVE AFTER 12 HOURS EXTERNALLY ONCE A DAY NEEDED 12 HRS ON AND 12 HRS OFF TAKING WRIST SPLINT RIGHT WRIST NEEDED TAKING ACCUTANE 20 MG DAILY ORAL DAILY TAKING TRIKAFTA 100-50-75 & 150 MG TABLET THERAPY PACK DIRECTED ORALLY DAILY, NOTES: FOR CYCSTIC FIBROSIS TAKING MULTIVITAMIN ADULT - TABLET 1 TABLET ORALLY DAILY TAKING ZOLOFT 100 MG TABLET 1 TABLET ORALLY ONCE A DAY TAKING VOLTAREN 1 % GEL DIRECTED TRANSDERMAL TAKING TIZANIDINE HCL 2 MG TABLET 1 TABLET NEEDED - TAKES 1/2 TABLET DAILY ORALLY FOR SPASMS TID PRN, NOTES: 08/31/20 TAKING BUPROPION HCL ER (SMOKING DET) 150 MG TABLET EXTENDED RELEASE 12 HOUR 1 TABLET IN THE MORNING ORALLY ONCE A DAY TAKING LYRICA 200 MG CAPSULE 1 CAPSULE ORALLY BID MDD2, NOTES: 08/31/20 NOT-TAKING MELOXICAM 15 MG TABLET 1 TABLET PRN ORALLY ONCE A DAY NOT-TAKING TRAMADOL HCL 50 MG TABLET 1-2 TAB ORALLY EVERY 6 HRS MDD4 NOT-TAKING MAY HAVE - - TURMERIC 2 CAPSULE ORALLY DAILY NOT-TAKING ALEVE 220 MG TABLET 1 TABLET WITH FOOD OR MILK NEEDED ORALLY EVERY 12 HRS NOT-TAKING KALYDECO 150 MG TABLET 1 TABLET ORALLY TWICE DAILY NOT-TAKING MULTI VITAMIN W/D-3 - TABLET 2 TABLETS ORALLY ONCE A DAY NOT-TAKING FLUOXETINE HCL 10 MG CAPSULE 1 CAPSULE IN THE MORNING ORALLY ONCE A DAY MEDICATION LIST REVIEWED AND RECONCILED WITH THE PATIENT PAST MEDICAL HISTORY CLASSIC MIGRAINE WITH AURA ATYPICAL DEPRESSIVE DISORDER/ANXIETY/ADJUSTMENT DISORDER ATTENTION DEFICIT DISORDER WITHOUT HYPERACTIVITY CERVICAL RADICULOPATHY/NEURITIS C5-6( SINCE 2007 ON DISABILITY) CHRONIC BACK PAIN CARPAL TUNNEL SYNDROME - LEFT HAND ALLERGIC RHINITIS 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 TO LINEZOLIDE AND CLINDAMYCIN ONLY 2017 PANCREATITIS RIGHT TORN LIGAMENT IN RIGHT OBESITY HYPERTENSION ALLERGIES AMITRIPTYLINE HCL: EXCESSIVE SOMNOLENCE - SIDE EFFECTS GABAPENTIN: GETS SUICIDAL THOUGHTS - SIDE EFFECTS SOCIAL HISTORY GENERAL: TOBACCO USE ARE YOU A:FORMER SMOKER VAPORNO E-CIGARETTENO SMOKING CESSATION INFORMATION GIVEN08/01/2020 LATEX QUESTIONNAIRE LATEX ALLERGY : HAVE YOU EVER DEVELOPED ANY TYPE OF REACTION AFTER HANDLING LATEX PRODUCTS SUCH RUBBER GLOVES, CONDOMS, DIAPHRAGMS, BALLOONS, SOCKS, OR UNDERWEAR?NO LATEX ALLERGY : HAVE YOU EVER DEVELOPED ANY TYPE OF REACTION DURING OR AFTER DENTAL APPOINTMENT, VAGINAL/RECTAL EXAMINATION, SURGICAL PROCEDURE, OR ANY OTHER EXPOSURE?NO LATEX RISK : HAVE YOU EVER HAD ANY DIFFICULTY BREATHING OR HIVES AFTER EATING OR HANDLING ANY FRUITS, OR VEGETABLES; SUCH KIWI, BANANAS, STONE FRUITS, OR CHESTNUTSNO LATEX RISK : DO YOU HAVE A PREVIOUS PERSONAL HISTORY OF MORE THAN NINE SURGERIES, SPINA BIFIDA, OR REPEATED CATHERIZATIONS? NO LATEX RISK : ARE YOU FREQUENTLY EXPOSED TO LATEX PRODUCTS IN YOUR OCCUPATION?NO DATE ASKED : 08/29/2020 ALCOHOL USE: NO. BMI CARE GOAL FOLLOW-UP ABOVE NORMAL BMI FOLLOW-UPEXERCISE PROMOTION: STRENGTH TRAINING ALCOHOL SCREENING DID YOU HAVE A DRINK CONTAINING ALCOHOL IN THE PAST YEAR?YES HOW OFTEN DID YOU HAVE SIX OR MORE DRINKS ON ONE OCCASION IN THE PAST YEAR?NEVER (0 POINTS) HOW MANY DRINKS DID YOU HAVE ON A TYPICAL DAY WHEN YOU WERE DRINKING IN THE PAST YEAR?3 OR 4 (1 POINT) HOW OFTEN DID YOU HAVE A DRINK CONTAINING ALCOHOL IN THE PAST YEAR?MONTHLY OR LESS (1 POINT) POINTS2 INTERPRETATIONNEGATIVE RECREATIONAL DRUG USE DRUG USE? NONE CAFFEINE CAFFEINE USE?NO SEXUAL HX HAD SEX IN THE LAST 12 MONTHS (VAGINAL, ORAL, OR ANAL)?: YES, WITH: WOMEN ONLY, HAVE YOU EVER HAD AN STD?: NO, HAD SEX IN THE LAST 12 MONTHS (VAGINAL, ORAL, OR ANAL)?: YES, WITH: WOMEN ONLY, HAVE YOU EVER HAD AN STD?: NO, HAD SEX IN THE LAST 12 MONTHS (VAGINAL, ORAL, OR ANAL)?: YES, WITH: WOMEN ONLY, HAVE YOU EVER HAD AN STD?: NO, HAD SEX IN THE LAST 12 MONTHS (VAGINAL, ORAL, OR ANAL)?: YES, WITH: WOMEN ONLY, HAVE YOU EVER HAD AN STD?: NO, HAD SEX IN THE LAST 12 MONTHS (VAGINAL, ORAL, OR ANAL)?: YES, WITH: WOMEN ONLY, HAVE YOU EVER HAD AN STD?: NO, HAD SEX IN THE LAST 12 MONTHS (VAGINAL, ORAL, OR ANAL)?: YES, WITH: WOMEN ONLY, HAVE YOU EVER HAD AN STD?: NO. HIV / HEP-C SCREENING HIV TEST OFFERED TO PATIENT:YES DATE OFFERED:07/27/2016 TEST ACCEPTED:NO HEP-C TEST OFFERED TO PATIENT:YES DATE OFFERED:07/27/2016 REASON:PATIENT DECLINED TEST ACCEPTED:NO REASON:PATIENT DECLINED CHRISTIAN [id number] [employer]ENT[employer] LANGUAGE LANGUAGES SPOKEN:[employer] [place] [employer] [place] EDUCATION BACHELOR- MATH, BACHELOR- MATH, BACHELOR- MATH, BACHELOR- MATH, BACHELOR- MATH, BACHELOR- MATH. 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 DIET: REGULAR , LOW FAT, LOW CHOLESTEROL, CARBOHYDRATE CONTROLLED, REGULAR , LOW FAT, LOW CHOLESTEROL, CARBOHYDRATE CONTROLLED. EXERCISE: NO REGULAR EXERCISE, WALKS, NO REGULAR EXERCISE, WALKS. MARITAL STATUS: , . OTHERS AT HOME: SPOUSE, , SPOUSE,. HOUSING: OWNS HOME, , OWNS HOME,. VITAL SIGNS WT 336.6 LBS, HT 70.5 IN, BMI 47.61 INDEX, BP 115/78 MM HG, HR 74 /MIN, RR 20 /MIN, TEMP 97.9 F, OXYGEN SAT % 99%, SAFE IN ENV? (Y/N) Y, NA INITIALS WY 09:33, REVIEWED BY: SCOTTY. EXAMINATION GENERAL: THE PATIENT IS ALERT, ORIENTED TIMES THREE AND COOPERATIVE. LUNGS ARE CLEAR TO AUSCULTATION. HEART SHOWS REGULAR RHYTHM, NO MURMURS AND NO GALLOPS. ASSESSMENTS INTERVERTEBRAL DISC DISORDERS WITH RADICULOPATHY, LUMBAR REGION - M51.16 (PRIMARY) TREATMENT INTERVERTEBRAL DISC DISORDERS WITH RADICULOPATHY, LUMBAR REGION [facility] FLUORO GUIDE SPINE INJECTION (PAIN)[id number] COMPLETION OF PROCEDURAL VISIT WHEN MEETS CRITERIACECIL CHRISTY 09/01/2020 10:57:45 AM > CRITERIA MET OTHERS NOTES: 08/29/20 1030 PAT COMPLETED. MICHELINE LOKIE ENGINEER. PROCEDURES PAIN NURSING RECORD PROCEDURE IN ROOM 1015, PHYSICIAN IN ROOM 1024, START 1027, FINISH 1031, PHYSICIAN OUT OF ROOM 1032, OUT OF ROOM 1035, ECG NORMAL SINUS, PATIENT SHIELDED YES, SAFETY STRAP YES, PREP BETADINE Alexander CHRISTY RN, DRESSING TEGADERM DR. BURCH LOC: 1. ALERT, ORIENTED, CECIL CHRISTY 09/01/2020 10:29:41 AM > RESP: 1. REGULAR, NO DYSPNEA, CECIL CHRISTY 09/01/2020 10:29:46 AM > COLOR: 1. PINK, CECIL CHRISTY 09/01/2020 10:29:52 AM > SKIN: 1. WARM, DRY, , CECIL CHRISTY 09/01/2020 10:30:05 AM > POSITION: 1. PRONE, CECIL CHRISTY 09/01/2020 10:24:21 AM > VITALS: 132/89, 67, 16, 98%, CECIL CHRISTY 09/01/2020 10:24:40 AM > 136/85, 72, 16, 98%, CECIL CHRISTY 09/01/2020 10:30:31 AM > 138/67, 76, 16, 100%, CECIL CHRISTY 09/01/2020 10:45:45 AM > NOTES Alexander CHRISTY RN, CECIL CHRISTY 09/01/2020 10:24:45 AM > COMPLETION OF PROCEDURE APPOINTMENT: POST PAIN 4, DRESSING SITE DRY AND INTACT, IV N/A, GAIT STEADY, TEACHING COMPLETED, PATIENT ACKNOWLEDGES UNDERSTANDING YES, PROCEDURE APPOINTMENT COMPLETED AT 1057 PRE PROCEDURE DIAGNOSIS LUMBAR DISC DISORDER WITH RADICULOPATHY POST PROCEDURE DIAGNOSIS LUMBAR DISC DISORDER WITH RADICULOPATHY PROCEDURE LUMBAR EPIDURAL STEROID INJECTION UNDER FLUOROSCOPIC GUIDANCE SURGEON DR. ILA BURCH BETTING AGENCY MANAGER NONE ANESTHESIA LOCAL PRE PROCEDURE NOTE THE PATIENT HAS A HISTORY OF CHRONIC LOW BACK PAIN. I EVALUATED THE PATIENT AND REVIEWED THE CHART. I WENT OVER THE RISKS, ALTERNATIVES, AND BENEFITS ASSOCIATED WITH THIS PROCEDURE. THE PATIENT WOULD LIKE TO PROCEED AND GIVE CONSENT TO PERFORMED THE PROCEDURE. THE PATIENT DENIES UNEXPLAINABLE WEIGHT LOSS, FEVER, CHILLS, OR NEW CHANGES IN URINARY OR BOWEL CONTROL. THE PATIENT IS COVID-19 NEGATIVE DESCRIPTION OF PROCEDURE THE PATIENT WAS BROUGHT TO THE PROCEDURE ROOM AND PLACED IN THE PRONE POSITION. THE LUMBOSACRAL AREA WAS CLEANED WITH BETADINE SOLUTION AND DRAPED ASEPTICALLY. THE PROCEDURE WAS DONE UNDER STERILE CONDITIONS. A TIMEOUT WAS PERFORMED WHERE THE CONSENTED SITE WAS VERIFIED WITH EVERYONE IN THE ROOM. UNDER FLUOROSCOPIC GUIDANCE, THE TARGET POINT WAS SELECTED AT THE INTERLAMINAR LEVEL OF L4-L5. I CONFIRMED AGAIN THE SITE OF TARGET. LIDOCAINE WAS USED TO NUMB THE SKIN AND THE SUBCUTANEOUS TISSUE BELOW IT. EPIDURAL TUOHY NEEDLE, 17-GAUGE, WAS ADVANCED UNDER FLUOROSCOPIC GUIDANCE AND FOLLOWING PATIENT FEEDBACK UNTIL THE EPIDURAL SPACE WAS REACHED 9 CM DEEP INTO THE SKIN BY THE LOSS OF RESISTANCE TECHNIQUE. ISOVUE-M DYE 30%, 0.25 ML, WAS INJECTED SHOWING ADEQUATE SPREAD OF THE DYE. THEN, A SOLUTION OF 3 ML OF NORMAL SALINE WITH DEPO-MEDROL 40 MG WAS INJECTED SLOWLY FOLLOWING PATIENT FEEDBACK. THE MEDICATIONS WERE VERIFIED WITH THE NURSE. THERE WAS NO EVIDENCE OF BLOOD, PARESTHESIA OR CEREBROSPINAL FLUID DURING THE PROCEDURE. THE PATIENT WAS SENT TO THE RECOVERY ROOM. THE PATIENT WAS MOVING THE EXTREMITIES AND DOING WELL. THERE WERE NO COMPLICATIONS DURING THE PROCEDURE. ESTIMATED BLOOD LOSS WAS LESS THAN 5 ML. FLUOROSCOPY TIME WAS 7 SECONDS POST PROCEDURE NOTE THE PATIENT WILL BE SEEN IN A FOLLOW UP IN THE NEXT FEW WEEKS. I AM LOOKING FOR LONG LASTING RELIEF FOR THE PATIENT WITH THIS INTERVENTION. INSTRUCTIONS WERE GIVEN, QUESTIONS WERE ANSWERED, AND THE PATIENT EXPRESSED UNDERSTANDING AND AGREES WITH THE PLAN. I, THEODORA PATHAK, DOCUMENTED THE ABOVE INFORMATION ACTING A SCRIBE FOR DR. BURCH. I HAVE REVIEWED THE ABOVE DOCUMENT, WRITTEN BY THEODORA PATHAK, OFFICE AIDE, AND I VERIFY THAT IT IS ACCURATE PROCEDURE CODES 71469 LUMBAR/SACRAL W/ IMAGING DISPOSITION & COMMUNICATION FOLLOW UP FOLLOW UP WITH OVERLOCK SEWING MACHINE OPERATOR (REASON: POST LUMBAR EPIDURAL STEROID INJECTION) ELECTRONICALLY SIGNED BY ILA BURCH MD, MD ON 09/04/2020 AT 02:13 PM EDT DISCLAIMER : THIS IS A VISIT SUMMARY EXTRACTED FROM THE [employer] CHART. IT IS NOT A COPY OF THE [employer] PROGRESS NOTE. JADEN
== END ==
LOC: M PAIN 08:30
PROVIDERS: ATTEND Anesthesiology
DX: M51.16 Intervertebral disc disorders with radiculopathy, lumbar region (principal); G47.30 Sleep apnea, unspecified; G43.909 Migraine, unspecified, not intractable, without status migrainosus; R25.1 Tremor, unspecified; Z86.59 Personal history of other mental and behavioral disorders; Z87.891 Personal history of nicotine dependence; Z88.8 Allergy status to other drugs, medicaments and biological substances; E66.01 Morbid (severe) obesity due to excess calories; Z68.42 Body mass index [BMI] 45.0-49.9, adult; Z79.899 Other long term (current) drug therapy
CPT/HCPCS: 62323; J1030; Q9967

== ENCOUNTER → 2020-09-16 | Outpatient (CLI) | payer OTHER ==
--- NOTE | 2020-09-17 03:02 | ECWPNPC ---
PATIENT NAME: KYRIE REDMOND : 1985 GENDER: MALE VISIT DATE: 09/16/2020 DISCHARGE DATE: 09/16/20 1118 VISIT LOCKED DATE TIME: PHYSICIAN: CHARLES MEDINA PHYSICIAN PAGER NO: ACTIVE RESOURCE: CHARLES MEDINA REASON FOR APPOINTMENT 1. POST LUMBAR EPIDURAL STERIOD INJECTION HISTORY OF PRESENT ILLNESS GENERAL: HERE FOR POSTPROCEDURE FOLLOW-UP. HAD LUMBAR EPIDURAL STEROID INJECTION ON 09/01/2020. REPORTING SOME IMPROVEMENT IN LEFT THIGH PAIN INTENSITY BUT PAIN CONTINUES TO BE QUITE BOTHERSOME FOR HIM LATELY. REPORTING INABILITY TO SLEEP AT NIGHT DUE TO PAIN. PAIN IS LOCATED ACROSS THE LOW BACK INTO THE BUTTOCK AREA. REVIEWED MRI OF THE LS SPINE. THIS IS SHOWING MODERATE TO SEVERE FACET ARTHROPATHY AT L5-S1. HAD RIGHT COOLED RADIOFREQUENCY 1 YEAR AGO AND HAD PRETTY GOOD RELIEF OF HIS PAIN. DISCUSSED REPEATING DIAGNOSTIC TESTING ONE MORE TIME IN THAT AREA AND THEN PROCEEDING WITH REPEATING RADIOFREQUENCY. PATIENT IS RECEPTIVE. -. FALL RISK SCREENING: SCREENING : NO FALLS REPORTED IN THE LAST YEAR. PAIN SCREENING: PATIENT HAS A COMPLAINT OF ACUTE OR CHRONIC PAIN :YES LOCATION OF PAIN:LOW BACK INTENSITY OF PAIN (SCALE OF 1 TO 10):5 WHAT DOES YOUR PAIN FEEL LIKE:ACHING, CONTINOUS, OTHER HEAT DURATION:CONTINOUS, CONSTANT, ALL DAY PAIN IS INCREASED BY:ACTIVITIES PAIN IS DECREASED BY:OTHERS HEAT NURSING NOTE: -. PAIN CENTER INTAKE QUESTIONS: DO YOU HAVE A HISTORY OF MRSA? :NO DO YOU TAKE A BLOOD THINNERS? :NO DO YOU HAVE ANY BLEEDING DISORDERS? :NO ANY NEW NUMBNESS OR WEAKNESS IN YOUR LEGS OR ARMS? :YES NUMBNESS IN LEGS ANY PACEMAKER,DEFIBRILLATOR, OR DORSAL COLUMN STIMULATOR? :NO DO YOU HAVE ANY RASHES OR OPEN SORES? :NO ARE YOU ALLERGIC TO IV DYE? :NO ARE YOU DIABETIC? :NO ANY NEW PROBLEMS WITH YOUR MEDICATIONS? :NO HAVE YOU RECEIVED A VACCINE IN THE PAST 30 DAYS? :NO DO YOU PLAN TO RECEIVE A VACCINE IN THE NEXT 21 DAYS? :NO DO YOU NEED ANY PRESCRIPTION? :YES LYRICA DO YOU TAKE ANY IMMUNOSUPPRESSIVE MEDICATIONS? :NO IS THERE A CHANCE YOU COULD BE ? :NO ARE YOU BREAST FEEDING? :NO CURRENT MEDICATIONS TAKING LIPITOR 20 MG TABLET 1 TABLET ORALLY ONCE A DAY TAKING [facility] FLUTICASONE PROPIONATE 50 MCG/ACT SUSPENSION 1 SPRAY IN EACH NOSTRIL NASALLY ONCE A DAY TAKING LISINOPRIL 5 MG TABLET DIRECTED ORALLY DAILY TAKING ZITHROMAX 250 MG TABLET 1 TABLET ORALLY ONCE A DAY, NOTES: FOR CYSTIC FIBROSIS TAKING ALBUTEROL SULFATE HFA 108 (90 BASE) MCG/ACT AEROSOL SOLUTION 2 PUFFS INHALATION EVERY 4-6 HOURS NEEDED TAKING LIDOCAINE 5 % PATCH 1 PATCH TO INTACT SKIN REMOVE AFTER 12 HOURS EXTERNALLY ONCE A DAY NEEDED 12 HRS ON AND 12 HRS OFF TAKING ACCUTANE 20 MG DAILY ORAL DAILY TAKING TRIKAFTA 100-50-75 & 150 MG TABLET THERAPY PACK DIRECTED ORALLY DAILY, NOTES: FOR CYCSTIC FIBROSIS TAKING MULTIVITAMIN ADULT - TABLET 1 TABLET ORALLY DAILY TAKING ZOLOFT 100 MG TABLET 1 TABLET ORALLY ONCE A DAY TAKING VOLTAREN 1 % GEL DIRECTED TRANSDERMAL TAKING TIZANIDINE HCL 2 MG TABLET 1 TABLET NEEDED - TAKES 1/2 TABLET DAILY ORALLY FOR SPASMS TID PRN TAKING BUPROPION HCL ER (SMOKING DET) 150 MG TABLET EXTENDED RELEASE 12 HOUR 1 TABLET IN THE MORNING ORALLY ONCE A DAY TAKING LYRICA 200 MG CAPSULE 1 CAPSULE ORALLY BID MDD2 NOT-TAKING WRIST SPLINT RIGHT WRIST NEEDED NOT-TAKING MELOXICAM 15 MG TABLET 1 TABLET PRN ORALLY ONCE A DAY NOT-TAKING TRAMADOL HCL 50 MG TABLET 1-2 TAB ORALLY EVERY 6 HRS MDD4 NOT-TAKING MAY HAVE - - TURMERIC 2 CAPSULE ORALLY DAILY NOT-TAKING ALEVE 220 MG TABLET 1 TABLET WITH FOOD OR MILK NEEDED ORALLY EVERY 12 HRS NOT-TAKING KALYDECO 150 MG TABLET 1 TABLET ORALLY TWICE DAILY NOT-TAKING MULTI VITAMIN W/D-3 - TABLET 2 TABLETS ORALLY ONCE A DAY NOT-TAKING FLUOXETINE HCL 10 MG CAPSULE 1 CAPSULE IN THE MORNING ORALLY ONCE A DAY MEDICATION LIST REVIEWED AND RECONCILED WITH THE PATIENT PAST MEDICAL HISTORY CLASSIC MIGRAINE WITH AURA ATYPICAL DEPRESSIVE DISORDER/ANXIETY/ADJUSTMENT DISORDER ATTENTION DEFICIT DISORDER WITHOUT HYPERACTIVITY CERVICAL RADICULOPATHY/NEURITIS C5-6( SINCE 2007 ON DISABILITY) CHRONIC BACK PAIN CARPAL TUNNEL SYNDROME - LEFT HAND ALLERGIC RHINITIS 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 TO LINEZOLIDE AND CLINDAMYCIN ONLY 2016 PANCREATITIS RIGHT TORN LIGAMENT IN RIGHT OBESITY HYPERTENSION SECOND COVID VACCINATION 05/21/20 ALLERGIES AMITRIPTYLINE HCL: EXCESSIVE SOMNOLENCE - SIDE EFFECTS GABAPENTIN: GETS SUICIDAL THOUGHTS - SIDE EFFECTS SOCIAL HISTORY GENERAL: TOBACCO USE ARE YOU A:FORMER SMOKER 2009 SMOKING CESSATION INFORMATION GIVEN09/16/2020 VAPORNO E-CIGARETTENO LATEX QUESTIONNAIRE LATEX ALLERGY : HAVE YOU EVER DEVELOPED ANY TYPE OF REACTION AFTER HANDLING LATEX PRODUCTS SUCH RUBBER GLOVES, CONDOMS, DIAPHRAGMS, BALLOONS, SOCKS, OR UNDERWEAR?NO LATEX ALLERGY : HAVE YOU EVER DEVELOPED ANY TYPE OF REACTION DURING OR AFTER DENTAL APPOINTMENT, VAGINAL/RECTAL EXAMINATION, SURGICAL PROCEDURE, OR ANY OTHER EXPOSURE?NO LATEX RISK : HAVE YOU EVER HAD ANY DIFFICULTY BREATHING OR HIVES AFTER EATING OR HANDLING ANY FRUITS, OR VEGETABLES; SUCH KIWI, BANANAS, STONE FRUITS, OR CHESTNUTSNO LATEX RISK : DO YOU HAVE A PREVIOUS PERSONAL HISTORY OF MORE THAN NINE SURGERIES, SPINA BIFIDA, OR REPEATED CATHERIZATIONS? NO LATEX RISK : ARE YOU FREQUENTLY EXPOSED TO LATEX PRODUCTS IN YOUR OCCUPATION?NO DATE ASKED : 09/16/2020 ALCOHOL USE: NO. BMI CARE GOAL FOLLOW-UP ABOVE NORMAL BMI FOLLOW-UPEXERCISE PROMOTION: STRENGTH TRAINING ALCOHOL SCREENING DID YOU HAVE A DRINK CONTAINING ALCOHOL IN THE PAST YEAR?YES HOW OFTEN DID YOU HAVE SIX OR MORE DRINKS ON ONE OCCASION IN THE PAST YEAR?NEVER (0 POINTS) HOW MANY DRINKS DID YOU HAVE ON A TYPICAL DAY WHEN YOU WERE DRINKING IN THE PAST YEAR?3 OR 4 (1 POINT) HOW OFTEN DID YOU HAVE A DRINK CONTAINING ALCOHOL IN THE PAST YEAR?MONTHLY OR LESS (1 POINT) POINTS2 INTERPRETATIONNEGATIVE RECREATIONAL DRUG USE DRUG USE? NONE CAFFEINE CAFFEINE USE?NO SEXUAL HX HAD SEX IN THE LAST 12 MONTHS (VAGINAL, ORAL, OR ANAL)?: YES, WITH: WOMEN ONLY, HAVE YOU EVER HAD AN STD?: NO, HAD SEX IN THE LAST 12 MONTHS (VAGINAL, ORAL, OR ANAL)?: YES, WITH: WOMEN ONLY, HAVE YOU EVER HAD AN STD?: NO, HAD SEX IN THE LAST 12 MONTHS (VAGINAL, ORAL, OR ANAL)?: YES, WITH: WOMEN ONLY, HAVE YOU EVER HAD AN STD?: NO, HAD SEX IN THE LAST 12 MONTHS (VAGINAL, ORAL, OR ANAL)?: YES, WITH: WOMEN ONLY, HAVE YOU EVER HAD AN STD?: NO, HAD SEX IN THE LAST 12 MONTHS (VAGINAL, ORAL, OR ANAL)?: YES, WITH: WOMEN ONLY, HAVE YOU EVER HAD AN STD?: NO, HAD SEX IN THE LAST 12 MONTHS (VAGINAL, ORAL, OR ANAL)?: YES, WITH: WOMEN ONLY, HAVE YOU EVER HAD AN STD?: NO. HIV / HEP-C SCREENING HIV TEST OFFERED TO PATIENT:YES DATE OFFERED:07/27/2016 TEST ACCEPTED:NO HEP-C TEST OFFERED TO PATIENT:YES DATE OFFERED:07/27/2016 REASON:PATIENT DECLINED TEST ACCEPTED:NO REASON:PATIENT DECLINED LATTER DAY [id number] [employer] LANGUAGE LANGUAGES SPOKEN:BELARUSIAN EDUCATION BACHELOR- MATH, BACHELOR- MATH, BACHELOR- MATH, BACHELOR- MATH, BACHELOR- MATH, BACHELOR- MATH. LEARNING BARRIERS / SPECIAL NEEDS CHANGE FROM LAST VISIT?NO BARRIERS TO LEARNING?NO HEARING IMPAIRED?YES VISION IMPAIRED?YES :CORRECTIVE LENSES COGNITIVELY IMPAIRED?YES READINESS TO LEARN?YES LEARNING PREFERENCES?NO LEARNING CAPABILITIES PRESENT?YES EMOTIONAL BARRIERS?NO SPECIAL DEVICES?YES : CPAP KEY ACCOUNT EXECUTIVE NEEDED?NO DOMESTIC VIOLENCE DO YOU FEEL SAFE IN YOUR ENVIRONMENT?YES OCCUPATION: [employer], MOVED BACK FROM [employer] [employer] WORKED IN [employer], , [employer], MOVED BACK FROM [employer] WORKED IN [employer],. DIET: REGULAR , LOW FAT, LOW CHOLESTEROL, CARBOHYDRATE CONTROLLED, REGULAR , LOW FAT, LOW CHOLESTEROL, CARBOHYDRATE CONTROLLED. EXERCISE: NO REGULAR EXERCISE, WALKS, NO REGULAR EXERCISE, WALKS. MARITAL STATUS: , . OTHERS AT HOME: SPOUSE, , SPOUSE,. HOUSING: OWNS HOME, , OWNS HOME,. REVIEW OF SYSTEMS CONSTITUTIONAL: ANY RECENT FEVER NO . CHILLS NO . WEIGHT CHANGE OF UNKNOWN REASONS NO . GASTROENTEROLOGY: NEW UNEXPLAINABLE CHANGES IN BOWEL CONTROL NO . CONSTIPATION NO . GENITOURINARY: ANY NEW CHANGE IN BLADDER CONTROL? NO . NEUROLOGY: NEW ONSET DIZZINESS OR NEUROLOGICAL CHANGES NOT MENTIONED NO . NEW NUMBNESS OR PAIN PATTERNS NOT MENTIONED AND PERTINENT TO TODAY'S VISIT NO . CARDIOLOGY: NEW CHEST PRESSURE NO . PATIENT DENIES NO . RESPIRATORY: UNEXPLAINABLE COUGH NO . NEW SHORTNESS OF BREATH NO . VITAL SIGNS WT 331 LBS, HT 70.5 IN, BMI 46.82 INDEX, BP 130/71 MM HG, HR 70 /MIN, RR 19 /MIN, TEMP 98.2 F, OXYGEN SAT % 97%, SAFE IN ENV? (Y/N) YEST.YARED JOLLEY. EXAMINATION GENERAL EXAMINATION: GENERALNO ACUTE DISTRESS, WELL NOURISHED AND HYDRATED. PSYCHAPPROPRIATE MOOD AND AFFECT . NECK:NO LYMPHADENOPATHY, SUPPLE. LUNGS:CLEAR TO AUSCULTATION BILATERALLY, NO WHEEZES, RHONCHI, RALES. HEART:NO MURMURS, REGULAR RATE AND RHYTHM. LUMBAR:SPECIFIC POINT TENDERNESS NOTED OVER BILATERAL L4-5, L5-S1 LUMBAR FACETS WITH FACET LOADING.. DIAGNOSTIC TESTS REVIEWED MRI L/S SPINE 2018. 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 CONSIDER DOING COOL RADIOFREQUENCY AFTER REVIEWING RESULTS OF DIAGNOSTIC TESTING. TODAY WE WILL START HYDROCODONE 5/325 WITH INSTRUCTIONS TO USE 1 TABLET EVERY 8 HOURS NEEDED FOR SEVERE PAIN EPISODES WITH MAXIMUM DAILY DOSE OF 3 TABLETS. HE WILL BE ISSUED # 45 TABLETS TO LAST 30 DAYS. PATIENT WILL SIGN A NARCOTIC AGREEMENT TODAY. REVIEWED PRE PROCEDURE INFORMATION, PATIENT VERBALIZED UNDERSTANDING THELMA JOLLEY. PROCEDURE CODES FA211 ESTABILISHED PATIENT [facility] FACILITY CHARGE DISPOSITION & COMMUNICATION FOLLOW UP POST (REASON: BILATERAL DIAGNOSTIC LUMBAR FACET BLOCK #2 L4-5,L5-S1) ELECTRONICALLY SIGNED BY ELADIA PA ON 09/16/2020 AT 03:48 PM EDT DISCLAIMER : THIS IS A VISIT SUMMARY EXTRACTED FROM THE [employer] CHART. IT IS NOT A COPY OF THE [facility] PROGRESS NOTE. JADEN
== END ==
LOC: M PAIN 10:30
PROVIDERS: ATTEND Nurse Practitioner Family
DX: G89.29 Other chronic pain (principal); M47.27 Other spondylosis with radiculopathy, lumbosacral region; G43.109 Migraine with aura, not intractable, without status migrainosus; F32.9 Major depressive disorder, single episode, unspecified; F41.9 Anxiety disorder, unspecified; E84.9 Cystic fibrosis, unspecified; N52.9 Male erectile dysfunction, unspecified; R25.1 Tremor, unspecified; E66.9 Obesity, unspecified; I10 Essential (primary) hypertension; Q55.4 Other congenital malformations of vas deferens, epididymis, seminal vesicles and prostate; Z87.891 Personal history of nicotine dependence; Z79.899 Other long term (current) drug therapy; Z88.8 Allergy status to other drugs, medicaments and biological substances

== ENCOUNTER → 2020-10-08 | Outpatient (CLI) | payer OTHER | LOC: M LABSMTC 13:38 | PROVIDERS: ATTEND Anesthesiology | DX: Z01.812 Encounter for preprocedural laboratory examination (principal); Z11.52 Encounter for screening for COVID-19 ==

== ENCOUNTER → 2020-10-14 | Outpatient (CLI) | payer OTHER ==
[~2020-10-14] MED LIST changes: +BUPIVACAINE HCL 0.25% 30ML VIAL As Ordered ONE; -methylPREDNISolone SUSP 40MG/ML 1ML VIAL (DEPO MEDROL) As Ordered ONE
--- NOTE | 2020-10-14 15:30 | REP ---
INDICATION: BILATERAL DIAGNOSTIC LUMBAR FACET BLOCK L4-L5 L5-S1 #2. COMPARISON: None. TECHNIQUE: Four views. Thirty-seven seconds of fluoroscopy time is reported. FINDINGS: A sequence of 4 last image hold fluoroscopically obtained spot radiograph(s) of the lumbar spine document(s) needle position(s) and contrast injection associated with injection procedure. IMPRESSION: Procedural imaging. <Electronically signed by Joel Land > 10/14/20 [id number]
== END ==
LOC: M PAIN 13:00
PROVIDERS: ATTEND Anesthesiology
DX: M47.817 Spondylosis without myelopathy or radiculopathy, lumbosacral region (principal); M47.816 Spondylosis without myelopathy or radiculopathy, lumbar region; G43.109 Migraine with aura, not intractable, without status migrainosus; F32.9 Major depressive disorder, single episode, unspecified; F41.9 Anxiety disorder, unspecified; M54.12 Radiculopathy, cervical region; G56.02 Carpal tunnel syndrome, left upper limb; N52.9 Male erectile dysfunction, unspecified; E84.9 Cystic fibrosis, unspecified; E66.9 Obesity, unspecified; I10 Essential (primary) hypertension; M10.9 Gout, unspecified; Z87.891 Personal history of nicotine dependence; Z68.45 Body mass index [BMI] 70 or greater, adult; Z88.8 Allergy status to other drugs, medicaments and biological substances; Z79.891 Long term (current) use of opiate analgesic; Z79.899 Other long term (current) drug therapy
CPT/HCPCS: 64493; 64494; Q9967

== ENCOUNTER → 2020-10-31 | Outpatient (CLI) | payer OTHER | LOC: M PAIN 11:45 | PROVIDERS: ATTEND Anesthesiology | DX: G89.29 Other chronic pain (principal); M47.816 Spondylosis without myelopathy or radiculopathy, lumbar region; M47.817 Spondylosis without myelopathy or radiculopathy, lumbosacral region; G43.109 Migraine with aura, not intractable, without status migrainosus; F32.9 Major depressive disorder, single episode, unspecified; F41.9 Anxiety disorder, unspecified; J30.9 Allergic rhinitis, unspecified; E84.9 Cystic fibrosis, unspecified; N52.9 Male erectile dysfunction, unspecified; E66.9 Obesity, unspecified; I10 Essential (primary) hypertension; M10.9 Gout, unspecified; Z87.891 Personal history of nicotine dependence; Z79.891 Long term (current) use of opiate analgesic; Z79.899 Other long term (current) drug therapy; Z88.8 Allergy status to other drugs, medicaments and biological substances; Z68.42 Body mass index [BMI] 45.0-49.9, adult ==

== ENCOUNTER → 2020-12-17 | Outpatient (CLI) | payer OTHER | LOC: M LABSMTC 11:35 | PROVIDERS: ATTEND Anesthesiology | DX: Z01.812 Encounter for preprocedural laboratory examination (principal); Z20.822 Contact with and (suspected) exposure to COVID-19 ==

== ENCOUNTER → 2020-12-22 | Outpatient (CLI) | payer OTHER ==
[~2020-12-22] MED LIST changes: -ISOVUE-M 300 61% 15ML VIAL As Ordered ONE; +dexameTHASONE 10MG/1ML VIAL PRES.FREE (J1100 PER 1MG) As Ordered ONE
--- NOTE | 2020-12-22 15:15 | REP ---
INDICATION: RIGHT LUMBAR COOL RADIOFREQUENCY L4-L5, L5-S1. COMPARISON: None. TECHNIQUE: 2 C-arm views lower lumbar spine. FINDINGS: [place] are seen along the lower lumbar facets. IMPRESSION: 79 seconds fluoroscopy time utilized. <Electronically signed by Jake Rodriguez > 12/22/20 1203
== END ==
LOC: M PAIN 13:00
PROVIDERS: ATTEND Anesthesiology
DX: M47.816 Spondylosis without myelopathy or radiculopathy, lumbar region (principal); M47.817 Spondylosis without myelopathy or radiculopathy, lumbosacral region; G43.109 Migraine with aura, not intractable, without status migrainosus; F32.89 Other specified depressive episodes; N52.9 Male erectile dysfunction, unspecified; E66.9 Obesity, unspecified; I10 Essential (primary) hypertension; M10.9 Gout, unspecified; M54.12 Radiculopathy, cervical region; G56.03 Carpal tunnel syndrome, bilateral upper limbs; Z87.891 Personal history of nicotine dependence; Z88.8 Allergy status to other drugs, medicaments and biological substances; Z68.42 Body mass index [BMI] 45.0-49.9, adult
CPT/HCPCS: 64635; 64636; J1100